=== PATIENT | female | born 1995 | race Caucasian/White ===

== ENCOUNTER 2018-09-22 17:37 | Emergency (ER) | payer MEDICAID ==
[2018-09-22 17:59] VITALS: BP 126/79; PULSE 89; RESP 18; TEMP 98.2
[2018-09-22] MEDS ORDERED: DOXYCYCLINE 100 MG CAP PO STA (18:08)
[2018-09-22] MEDS ORDERED: IBUPROFEN 600 MG STARTER PACK 4 TAB BTL PO STA (18:08)
[2018-09-22] MEDS ORDERED: DIPH,PERTUS(ACELL)TETVAC-LF 0.5 ML VIAL IM ONE (18:12)
--- NOTE | 2018-09-22 18:12 | ED ---
Animal Bite HPI - General Chief Complaint: Animal Bite Stated Complaint: cat bite Time Seen by Provider: 09/22/18 18:01 Source: patient Mode of arrival: ambulatory Limitations: no limitations - History of Present Illness Initial Comments: 23-year-old female patient presents to the emergency department today for evaluation of Bite and scratches to the right lower leg. Patient states this started approximately 3 hours ago. Patient states she did wash the wounds with soap and water. States she did apply Neosporin ointment. Patient states the area is painful. She is able to ambulate. She denies any other wounds. She is unsure when her last tetanus vaccine was given. She believes cat is up-to-date on immunizations. Patient denies any headache, neck pain, back pain, chest pain, shortness of breath, dizziness, weakness, abdominal pain, nausea, vomiting, or difficulties with bowel movements or urination. - Related Data Previous Rx's Medication Instructions Recorded Doxycycline Hyclate [Vibramycin] 100 mg PO BID #14 cap 09/22/18 Allergies Allergy/AdvReac Type Severity Reaction Status Date / Time ciprofloxacin Allergy Rash/Hives Verified 09/22/18 18:00 Penicillins Allergy Rash/Hives Verified 09/22/18 18:00 Review of Systems ROS Statement: Those systems with pertinent positive or pertinent negative responses have been documented in the HPI. ROS Other: All systems not noted in ROS Statement are negative. Past Medical History Past Medical History: No Reported History History of Any Multi-Drug Resistant Organisms: None Reported Past Surgical History: No Surgical Hx Reported Past Psychological History: No Psychological Hx Reported Smoking Status: Never smoker Past Alcohol Use History: Rare Past Drug Use History: None Reported General Exam Limitations: no limitations General appearance: alert, in no apparent distress, other (This is a well- developed, well-nourished adult female patient in no acute distress. Vital sig ns upon presentation are temperature 98.2F, pulse 89, respirations 18, blood pressure 126/79, pulse ox 98% on room air.) Eye exam: Present: normal appearance, PERRL, EOMI. Absent: scleral icterus, conjunctival injection, periorbital swelling ENT exam: Present: normal exam, normal oropharynx, mucous membranes moist Respiratory exam: Present: normal lung sounds bilaterally. Absent: respiratory distress, wheezes, rales, rhonchi, stridor Cardiovascular Exam: Present: regular rate, normal rhythm, normal heart sounds. Absent: systolic murmur, diastolic murmur, rubs, gallop, clicks Extremities exam: Present: full ROM, normal capillary refill, other (Multiple scratches and puncture wounds to the right lower leg and the heel of the right foot. No active bleeding. Remainder of skin is pink, warm, dry. Cap refills less than 3 seconds. Pedal and posttibial pulses are 2+ and equal bilaterally.). Absent: normal inspection, tenderness, pedal edema, joint swelling, calf tenderness Neurological exam: Present: alert, oriented X3, CN II-XII intact Psychiatric exam: Present: normal affect, normal mood Skin exam: Present: warm, dry, intact, normal color. Absent: rash Course Vital Signs 09/22/18 17:57 Temperature 98.2 F Pulse Rate 89 Respiratory 18 Rate Blood Pressure 126/79 O2 Sat by Pulse 98 Oximetry Medical Decision Making - Medical Decision Making 23-year-old female patient presents to emergency department today for evaluation of Right and scratches to the right lower leg. Physical examination did reveal multiple superficial punctures and scratches to the right lower leg and foot. Neurovascular status is intact. We did update tetanus vaccine. Patient was sta rted on doxycycline. Did educate regarding wound care. Chills follow-up with the primary care physician for recheck in 1-2 days. Return parameters were discussed in detail. She verbalizes understanding and agrees with this plan. Disposition Clinical Impression: Cat bite of right lower leg, Cat scratch of right lower leg Disposition: HOME SELF-CARE Instructions (If sedation given, give patient instructions): Animal Bite (ED) Additional Instructions: Keep wounds clean and dry. Wash twice daily with warm water and antibacterial soap. Apply antibiotic ointment. Complete antibiotic prescription in full. Follow-up with your primary care physician for recheck in 1-2 days. Return to the emergency department immediately for any new, worsening, or concerning symptoms. Prescriptions: Doxycycline Hyclate [Vibramycin] 100 mg PO BID #14 cap Is patient prescribed a controlled substance at d/c from ED?: No Referrals: None,Stated [Primary Care Provider] - 1-2 days Time of Disposition: 18:12
== END 2018-09-22 18:57 | disposition home or self-care (01) ==
LOC: EC 17:37
DX: S91.351A Open bite, right foot, initial encounter (principal); Z88.0 Allergy status to penicillin; Z88.1 Allergy status to other antibiotic agents; Z23 Encounter for immunization; W55.01XA Bitten by cat, initial encounter
CPT/HCPCS: 90471; 90715; 99283